=== PATIENT | male | born 1975 | race African-American/Black ===

== ENCOUNTER 2016-08-31 07:31 | Emergency (ER) | payer SELFPAY ==
--- NOTE | ~2016-08-31 | CR63 ---
[facility] A Service of [facility] & [facility] RADIOLOGY TEXT RESULTS PATIENT: SONIA REYES LOCATION: [facility] : 79 UNIT #: [id number] AGE: [address]: Sabine Gil APRN SEX: M ORDER DR: [id number] [facility] [address] [place], [place] [address] [id number] E MR#: [id number] Acc #: [id number] NAME: SONIA REYES : 1975 SEX: M STUDY DATE/TIME: 08/31/2016 8:14 UNIT: [facility] ROOM: STUDY DESCRIPTION: CR Chest 2 View Attending Physician: Sabine Gil A.P.R.N. Ordering Physician: [facility] Primary Care Physician: Primary Care Physician No MEDICAL IMAGING REPORT This report is preliminary unless electronic signature is present EXAM Two views chest, 08/31/16 HISTORY Chest pain, fever, 4 days duration. , cough and chest pain. FINDINGS PA and lateral radiographs of the chest are presented. COMPARISON: 10/09/2011 The bony structures are unremarkable. Heart and mediastinum are normal in size and contour. Lungs moderately well inflated. No indication of acute pulmonary disease, pleural effusion or pneumothorax. No suspicious nodule. Bowel gas pattern visualized upper abdomen normal. Dictated by... Torrey Lott M.D. THIS IS AN ELECTRONICALLY VERIFIED REPORT Torrey Lott M.D. at 08/31/2016 9:09 AM ROBINA/luz elena TD: 08/31/2016 09:00 JOB #: [id number] MEDICAL IMAGING REPORT Page 1 of 1 COPY
--- NOTE | ~2016-08-31 | EKG ---
PATIENT: SONIA REYES UNIT #: [id number] Ventricular Rate: 93 BPM Atrial Rate: 93 BPM P-R Interval: 120 ms QRS Duration: 86 ms Q-T Interval: 350 ms QTC Calculation(Bezet): 435 ms P Caldwell: 53 degrees Calculated R Caldwell: 15 degrees Calculated T Caldwell: 6 degrees Diagnosis Line: Normal sinus rhythm Diagnosis Line: Nonspecific T wave abnormality Diagnosis Line: Abnormal ECG Diagnosis Line: When compared with ECG of 27-AUG-2014 21:19, Diagnosis Line: No significant change was found Diagnosis Line: Confirmed by YOAN CENTENO MD ([id number]) on Diagnosis Line: 08/31/2016 4:38:13 PM INTERPRETING MD: JACOBO BEAUCHAMP
[~2016-08-31 07:31] MED LIST: ALBUTEROL17 GM INH; FLEXERIL PO; HYDROCODON-ACE1 EAC9 PO; LORTAB 5/500 TA1 TA1 PO; MEDROL PO; PHENERGAN VC W120 M1 PO; TYLENOL325 M1 PO
[2016-08-31 07:51] LABS: BASOPHIL# 0.1 X10e3 (0-0.3); BASOPHIL% 0.7 % (0-2.5); DIFF IND YES; EOSINOPHIL# 0.2 X10e3 (0-0.7); EOSINOPHIL% 1.4 % (0.0-7.0); HEMATOCRIT 41.9 % (38.0-50.0); HEMOGLOBIN 13.6 gm/dL (13.0-16.0); LYMPHOCYTE# 2.3 X10e3 (1.0-3.5); MEAN CELL VOLUME 81.1 FL (83-96); MEAN CORPUSCULAR HEMOGLOBIN 26.4 PG (28-34); MEAN CORPUSCULAR HGB CONC 32.5 g/dL (30-36); MEAN PLATELET VOLUME 8.6 FL (6.5-11.5); MONOCYTE# 1.4 X10e3 (0-1.0); MONOCYTE% 9.1 % (3.0-12.0); NEUTROPHIL# 11.3 X10e3 (1.5-7.1); NEUTROPHIL% 73.8 % (40-75); PLATELET COUNT 217 X10e3 (140-420); RED BLOOD COUNT 5.16 X10e (3.90-5.60); RED CELL DISTRIBUTION WIDTH 13.1 % (11.0-15.5); WHITE BLOOD COUNT 15.3 X10e3 (4.0-10.5)
[2016-08-31 08:20] LABS: PLATELET ESTIMATE NORMAL (NORMAL)
[2016-08-31 08:26] LABS: POC - CKMB <1.0 ng/mL (0.0-7.9); POC - TROPONIN <0.05 ng/mL (<=0.05)
[2016-08-31 08:29] LABS: GLOM FILT RATE Estimated 109.4 mL/min (>60); POTASSIUM 3.9 mmol/L (3.5-5.1)
== END 2016-08-31 09:51 | disposition home or self-care (01) ==
LOC: CED 07:31
PROVIDERS: Nurse Practitioner
DX: J02.9 Acute pharyngitis, unspecified (principal); J35.1 Hypertrophy of tonsils; F17.210 Nicotine dependence, cigarettes, uncomplicated; Z91.013 Allergy to seafood; Z88.8 Allergy status to other drugs, medicaments and biological substances
CPT/HCPCS: 36415; 71020; 80048; 82553; 84484; 85025; 87651; 93005; 96361; 96374; 96375; 99284; J1100; J2270; J2405